=== PATIENT | female | born 1970 | race Caucasian/White ===

== ENCOUNTER 2016-07-29 18:19 | Emergency (ER) | payer SELFPAY ==
[2016-07-29 19:12] LABS: Basophils % (Auto) 1.3 % (0.0-1.8); Eosinophils % (Auto) 4.5 % (0.0-4.3); Hemoglobin 11.2 gm/dl (10.1-14.3); Mean Corpuscular HGB Conc 33 % (30-34); Mean Corpuscular Hemoglobin 27 pg (28-32); Mean Corpuscular Volume 81 fl (79-97); Platelet Count 482 K/mm3 (140-440); Red Blood Count 4.17 M/mm3 (3.65-5.03); Red Cell Distribution Width 15.5 % (13.2-15.2); White Blood Count 7.7 K/mm3 (4.5-11.0)
[2016-07-29 19:15] LABS: Albumin 4.2 g/dL (3.9-5); Albumin/Globulin Ratio 1.1 %; Bilirubin,Total 0.3 mg/dL (0.1-1.2); Calcium 10.8 mg/dL (8.4-10.2); Chloride 100.3 mmol/L (98-107); Potassium 3.7 mmol/L (3.6-5.0); Total Protein 8.2 g/dL (6.3-8.2)
[2016-07-29 20:17] LABS: Bacteria,Urine 1+ /HPF (Negative); Bilirubin,Urine NEG (Negative); Blood,Urine SM (Negative); Ketones,Urine NEG (Negative); Leukocyte Esterase,Urine MOD (Negative); Mucus,Urine FEW /HPF; Nitrite,Urine NEG (Negative); Protein,Urine <15 mg/dL mg/dL (Negative); Urobilinogen,Urine < 2.0 mg/dL (<2.0)
[2016-07-29 22:27] VITALS: BP 155/75
[2016-07-30] MEDS ORDERED: MOTRIN PO ONE (00:41)
--- NOTE | 2016-07-30 00:43 | Emergency Department Report ---
ED General Adult HPI - General Chief complaint: Pain General Stated complaint: POSS UTI Time Seen by Provider: 07/30/16 00:36 Source: patient Mode of arrival: Ambulatory Limitations: No Limitations - History of Present Illness Initial comments: 35-year-old Syrian female comes in with complaint of urinary frequency body aches and pain. She reports that she has right lower back pain that radiates down her right leg almost to her foot. She also reports that she has hypertension has been compliant on her metoprolol and Lorcet. Patient reports she was recently seen by her doctor was treated for sinus infection a urinary tract infection with Cipro and hypertension which she is started on metoprolol and Losartan, patient reports that she still has a headache that remains. Patient has a past medical history of sinus infections sarcoidosis hypertension and arthritis. Location: pelvis, lower extremity Radiation: back Severity scale (0 -10): 8 - Related Data Home Medications Medication Instructions Recorded Confirmed Last Taken Metoprolol Succinate 25 mg PO DAILY 07/29/16 07/29/16 07/29/16 Previous Rx's Medication Instructions Recorded Last Taken Type Fluconazole [Diflucan TAB] 200 mg PO QDAY #1 tablet 07/30/16 Unknown Rx Ibuprofen [Motrin 800 MG tab] 800 mg PO Q8HR #30 tablet 07/30/16 Unknown Rx Nitrofurantoin Fajardo/M-Cryst 100 mg PO Q12HR #14 capsule 07/30/16 Unknown Rx [Macrobid CAP] Triamcinolone Acetonide [Nasacort 10.8 ml NS QDAY #1 spray 07/30/16 Unknown Rx SPRAY] traMADol [Ultram 50 MG tab] 50 mg PO Q6HR PRN #16 tablet 07/30/16 Unknown Rx Allergies Allergy/AdvReac Type Severity Reaction Status Date / Time No Known Allergies Allergy Unverified 07/29/16 18:34 ED Review of Systems ROS: Stated complaint: POSS UTI Other details as noted in HPI Constitutional: denies: chills, fever Eyes: denies: eye pain, eye discharge, vision change ENT: denies: ear pain, throat pain Respiratory: denies: cough, shortness of breath, wheezing Cardiovascular: denies: chest pain, palpitations Endocrine: no symptoms reported Gastrointestinal: denies: abdominal pain, nausea, diarrhea Genitourinary: urgency, frequency Musculoskeletal: back pain Skin: denies: rash, lesions Neurological: headache Psychiatric: denies: anxiety, depression ED Past Medical Hx - Past Medical History Previous Medical History?: Yes Hx Hypertension: Yes Hx Arthritis: Yes Additional medical history: sinus infection, sarcodosis, Vaginal delivery x 2 - Surgical History Past Surgical History?: Yes Additional Surgical History: tubaligation - Social History Smoking Status: Former Smoker - Medications Home Medications: Home Medications Medication Instructions Recorded Confirmed Last Taken Type Metoprolol Succinate 25 mg PO DAILY 07/29/16 07/29/16 07/29/16 History Fluconazole [Diflucan TAB] 200 mg PO QDAY #1 tablet 07/30/16 Unknown Rx Ibuprofen [Motrin 800 MG tab] 800 mg PO Q8HR #30 tablet 07/30/16 Unknown Rx Nitrofurantoin Fajardo/M-Cryst 100 mg PO Q12HR #14 capsule 07/30/16 Unknown Rx [Macrobid CAP] Triamcinolone Acetonide [Nasacort 10.8 ml NS QDAY #1 spray 07/30/16 Unknown Rx SPRAY] traMADol [Ultram 50 MG tab] 50 mg PO Q6HR PRN #16 tablet 07/30/16 Unknown Rx ED Physical Exam - General Limitations: No Limitations General appearance: alert, in no apparent distress - Head Head exam: Present: atraumatic, normocephalic - Eye Eye exam: Present: normal appearance - ENT ENT exam: Present: mucous membranes moist - Neck Neck exam: Present: normal inspection - Respiratory Respiratory exam: Present: normal lung sounds bilaterally. Absent: respiratory distress - Cardiovascular Cardiovascular Exam: Present: regular rate, normal rhythm. Absent: systolic murmur, diastolic murmur, rubs, gallop - GI/Abdominal GI/Abdominal exam: Present: soft, normal bowel sounds - Expanded Back Exam Expanded Back exam: Sciatic Notch Tenderness: Left, Positive Straight Leg Raise: Left, Negative Straight Leg Raising: Right - Neurological Exam Neurological exam: Present: alert, oriented X3 ED Course Vital Signs 07/29/16 07/29/16 18:37 22:26 Temperature 98.2 F 97.9 F Pulse Rate 85 79 Respiratory 20 20 Rate Blood Pressure 179/116 Blood Pressure 155/75 [Right] O2 Sat by Pulse 99 98 Oximetry ED Medical Decision Making - Lab Data Result diagrams: 07/29/16 18:50 07/29/16 18:50 Critical care attestation.: If time is entered above; I have spent that time in minutes in the direct care of this critically ill patient, excluding procedure time. ED Disposition Clinical Impression: UTI (urinary tract infection), Sciatic leg pain, Back pain with right-sided sciatica, Chronic sinusitis Disposition: DISCHARGED TO HOME OR SELFCARE Is pt being admited?: No Does the pt Need Aspirin: No Condition: Stable Instructions: Urinary Tract Infection in Women (ED), Lumbar Radiculopathy (ED) , Sciatica (ED), Sinusitis (ED) Additional Instructions: Please take antibiotics and pain medication as prescribed please use the Nasacort spray for your chronic sinus issues. Follow up with her primary care doctor within one week for further evaluation. Prescriptions: Fluconazole [Diflucan TAB] 200 mg PO QDAY #1 tablet Ibuprofen [Motrin 800 MG tab] 800 mg PO Q8HR #30 tablet Nitrofurantoin Fajardo/M-Cryst [Macrobid CAP] 100 mg PO Q12HR #14 capsule traMADol [Ultram 50 MG tab] 50 mg PO Q6HR PRN #16 tablet PRN Reason: Pain Triamcinolone Acetonide [Nasacort SPRAY] 10.8 ml NS QDAY #1 spray Referrals: PRIMARY CARE,MD [Primary Care Provider] - 3-5 Days Forms: Work/School Release Form(ED)
== END 2016-07-30 00:55 | disposition home or self-care (01) ==
LOC: ED 18:19
DX: N39.0 Urinary tract infection, site not specified (principal); J32.9 Chronic sinusitis, unspecified; M54.41 Lumbago with sciatica, right side; M79.605 Pain in left leg; I10 Essential (primary) hypertension; M19.90 Unspecified osteoarthritis, unspecified site; Z87.891 Personal history of nicotine dependence; Z98.51 Tubal ligation status
CPT/HCPCS: 36415; 80053; 81001; 83690; 85025; 99283